=== PATIENT | female | born 1945 | race Caucasian/White ===

== ENCOUNTER 2024-11-24 08:47 | Inpatient (IN) | payer MEDICARE, BC, SELFPAY ==
[2024-11-24 08:52] VITALS: PULSE 99; RESP 20; O2SAT 94
--- NOTE | 2024-11-24 08:59 | EDNOTE_ITS ---
ED General RME/HPI General Chief complaint: Altered Mental Status Stated complaint: ALTERED Time Seen by Provider: 11/24/24 08:56 Arrival date/time: 11/24/24 08:47 RME / HPI RME / HPI narrative: L Chief complaint: Altered mentation, ground level fall HPI: Patient is a 79 year old female with unknown past medical history who was BIBA after her found her passed out on the floor around 7 am. Patient is a poor historian, minimally responsive, so most of the history was obtained from EMS. She was found on the floor in her house, unresponsive and covered in feces. As per EMS records, informed that the patient has a history of advanced dementia and often wanders around with history of ground level falls, but she has never lost bowel continence or appeared drowsy. she is otherwise able to ambulate independently and is responsive to conversation. In the ED, patient was noted to have bilateral upper extremity bruises and skin sloughing. She also has a LT upper back bruise, and grimaces to flexion and extension of LT lower extremity. patient refuses to open her eyes and is minimally engaging. Related Data Home Medications ?Medication ?Instructions ?Recorded ?Confirmed simvastatin 10 mg tablet (Zocor) 10 mg PO HS #0 tabs 0 05/28/14 11/24/24 metoprolol succinate 25 mg 25 mg PO BID 06/29/1811/24 tablet,extended release 24 hr nitrofurantoin macrocrystal 100 mg 100 mg PO DAILY 12/1511/24/24 capsule Allergies Allergy/AdvReac Type Severity Reaction Status Date / Time cimetidine Allergy Mild INCREASED Unverified 05/28/14 11:55 HEART RATE etodolac Allergy Mild Unverified 05/28/14 09:04 [id number] Allergy Mild Verified 05/28/14 09:04 [id number] Allergy Mild Verified 05/28/14 09:04 [id number] Allergy Mild Verified 05/28/14 09:04 [id number] Allergy Mild Verified 05/28/14 09:04 [id number] Allergy Mild Verified 05/28/14 09:04 [id number] Allergy Mild Verified 05/28/14 09:04 [id number] Allergy Mild Verified 05/28/14 09:04 [id number] Allergy Mild Verified 05/28/14 09:04 [id number] Allergy Mild Verified 05/28/14 09:04 [id number] Allergy Mild Verified 05/28/14 09:04 lanolin Allergy Mild Verified 05/28/14 09:04 nitrofurantoin Allergy Mild YEAST Unverified 05/28/14 09:04 INFECTION orphenadrine Allergy Mild Rash Verified 05/28/14 09:04 povidone Allergy Mild Verified 05/28/14 09:04 quinine Allergy Mild BLEEDING Unverified 05/28/14 09:04 Sulfa (Sulfonamide Allergy Mild Unverified 05/28/14 09:04 Antibiotics) sulfamethoxazole Allergy Mild Unverified 05/28/14 09:04 trimethoprim Allergy Mild Unverified 05/28/14 09:04 Review of Systems Review of Systems ROS Unobtainable: unobtainable due to mental status ED Exam Narrative Physical exam: Constitutional Elderly, unresponsive. Grimaces to pain. HEENT Vision grossly intact. Patent nares. Trachea midline. On 2L via NC Respiratory Chest normal on inspection and clear to auscultation bilaterally. Cardiovascular S1 and S2 audible, RRR. No murmurs or carotid bruit. No gross JVD. Abdominal Soft to palpation in all quadrants. BS + Genitourinary Normal to palpation, adult diaper Musculoskeletal B/L UE elbow abrasions. No LE edema. RT knee replacement surgical scar. LT foot toe deformities. Neurological CN II - XII grossly intact. Extremity motor and sensation grossly intact. Skin LT scapula upper back bruise. Multiple senile purpura Course Course Course Narrative: Acute encephalopathy due to advanced dementia Sepsis alert called, WBC 11.4, likely source LT base pneumonia on CT Chest and possibly UTI as well. UA pending. 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 Care 11/24/24 09:27 Active Continuous Pulse Oximetry STAT Care 11/24/24 09:27 Completed Decision to Admit X1 Care 11/24/24 12:36 Completed EKG (ED ONLY) *Do not use* NOW Care 11/24/24 09:12 Completed Ortega [Urinary Catheter] QS Care 11/24/24 09:11 Active IV [Insert IV] NOW Care 11/24/24 09:11 Active NPO STAT Care 11/24/24 09:27 Active Strict Intake and Output Routine Care 11/24/24 09:27 Ordered Wound Care NOW Care 11/24/24 09:52 Active Consult to Orthopedic Stat Cons 11/24/24 12:55 Ordered PT [Referral Physical Therapy] Routine Cons 11/24/24 17:26 Active Referral Discharge Planning Routine Cons 11/24/24 17:26 Active Diet Regular Diet 11/24/[address] cervical spine wo con Stat Exams 11/24/24 09:[address] chest abdomen pelvis wo Stat Exams 11/24/24 09:[address] head/brain wo con Stat Exams 11/24/24 09:[address] lumbar spine wo con Stat Exams 11/24/24 09:[address] thoracic spine wo con Stat Exams 11/24/24 09:14 Completed EKG (ED Only) Stat Exams 11/24/24 09:12 Ordered XR ankle LT 2V Stat Exams 11/24/24 09:52 Completed XR femur LT 2V Stat Exams 11/24/24 09:52 Completed XR forearm LT 2V Stat Exams 11/24/24 09:52 Completed XR forearm RT 2V Stat Exams 11/24/24 09:52 Completed XR tibia fibula LT 2V Stat Exams 11/24/24 09:52 Completed ABG [Arterial Blood Gas] Stat Lab 11/24/24 11:19 Completed Ammonia Stat Lab 11/24/24 09:23 Completed B-Type Natriuretic Peptide Stat Lab 11/24/24 09:23 Completed Blood Culture (Lab) Stat Lab 11/24/24 09:23 Received CBC AM DRAW Lab 11/25/24 05:00 Ordered CBC AM DRAW Lab 11/26/24 05:00 Ordered CBC AM DRAW Lab 11/27/24 05:00 Ordered CBC Stat Lab 11/24/24 09:23 Completed CMP [Comprehensive Metabolic Panel] Stat Lab 11/24/24 09:23 Completed Comprehensive Metabolic Panel AM DRAW Lab 11/25/24 05:00 Ordered Comprehensive Metabolic Panel AM DRAW Lab 11/26/24 05:00 Ordered Comprehensive Metabolic Panel AM DRAW Lab 11/27/24 05:00 Ordered Creatine Kinase Stat Lab 11/24/24 09:23 Completed INR [Prothrombin Time with INR] Stat Lab 11/24/24 09:23 Completed LDH (Lactate Dehydrogenase) Stat Lab 11/24/24 09:23 Completed Lactate (Lactic Acid) Stat Lab 11/24/24 09:23 Completed Lactic Acid, 3 HR Stat Lab 11/24/24 13:08 Completed Lipase Stat Lab 11/24/24 09:23 Completed Magnesium Stat Lab 11/24/24 09:23 Completed PTT [Partial Thromboplastin Time] Stat Lab 11/24/24 09:23 Completed Phosphorous Stat Lab 11/24/24 09:23 Completed Procalcitonin Stat Lab 11/24/24 09:23 Completed Troponin I Stat Lab 11/24/24 09:23 Completed Urinalysis Stat Lab 11/24/24 10:50 Completed Urine Culture Stat Lab 11/24/24 10:50 Received Bacitracin Oint Tube Med 11/24/24 09:52 Discontinued 2 gm TOP X1 ONE Heparin Inj Med 11/24/24 21:00 Active 5,000 unit SC BID Ringers Lactated 1000 ml [Lactated Ringers] 1,000 ml Med 11/24/24 12:43 Discontinued IV 1,000 mls/hr Sodium Chloride 0.45 % [Ns 0.45%] 1,000 ml Med 11/24/24 17:23 Active IV 100 mls/hr Sodium Chloride 0.9% 1000 ml [Ns] 1,000 ml Med 11/24/24 09:42 Discontinued IV 999 mls/hr Tet,Diphth,Pertuss(Acell)-Tdap [Boostrix Vacc] Med 11/24/24 12:43 Discontinued 0.5 ml IMI .ONCE ONE cefTRIAXone/D5w 1gm IV premix [Rocephin/D5w 1gm IV Med 11/25/24 09:00 Active premix] 50 ml IV QDAY cefTRIAXone/D5w 1gm IV premix [Rocephin/D5w 1gm IV Med 11/24/24 11:21 Discontinued premix] 50 ml IV X1 Code Status Routine Oth 11/24/24 17:23 Ordered Oxygen Delivery NOW RT 11/24/24 09:27 Active Vital Signs Vital signs: Vital Signs Temperature 98.6 F 11/24/24 09:27 Pulse Rate 98 11/24/24 09:27 Respiratory Rate 18 11/24/24 09:27 Blood Pressure 134/65 H 11/24/24 09:27 Pulse Oximetry (%) 90 L 11/24/24 09:27 Oxygen Delivery Method Nasal Cannula 11/24/24 09:27 Oxygen Flow Rate 2 11/24/24 09:27 [facility] Patient data External records reviewed:: None Clinical information provided by:: EMS and spouse Social determinants that could affect healthcare access:: other (specify) (Dementia) Patient has the following chronic illnesses:: unknown How is presenting disease/condition affected by chronic disease/condition?: e xacerbated by Evaluation data The following diagnostics were reviewed and interpreted by me:: lab results, radiology exam(s) and EKG tracing(s) (My interpretation of the EKG is: Sinus rhythm (82 bpm) with nonspecific ST-T changes. Zacarias Ramon MD) Lab and/or radiology exams considered but not ordered:: None Interpretation Summary: Sepsis, AMS (altered mental status), Dementia, Fall, Rhabdomyolysis, UTI (urinary tract infection), Multiple abrasions, DNR (do not resuscitate), Pelvic fracture, Right rib fracture Medications Medications considered but not ordered:: None Medication administrations:: Medication Administration History Heparin Sodium (Porcine) (Heparin Sod Inj 5000 Unit/Ml Vial) 5,000 unit SC BID [place] Stop: 12/08/24 20:59 Sodium Chloride (Ns 0.45%) 1,000 mls @ 100 mls/hr IV .Q10H ONE Stop: 11/25/24 03:22 Ceftriaxone Sodium/Dextrose (Rocephin/D5w 1gm Iv Premix) 50 mls @ 100 mls/hr IV QDAY [place] Stop: 12/02/24 08:59 Discontinued Medications Bacitracin (Bacitracin Oint 15 Gm Tube) 2 gm TOP X1 ONE Stop: 11/24/24 09:53 Last Admin: 11/24/24 10:31 Dose: 2 gram Documented By: KADY Diphtheria/Tetanus/Acell Pertussis (Diphth,Pertuss(Acell),Tet Vac 0.5 Ml Vial) 0.5 ml IMi .ONCE ONE Stop: 11/24/24 12:44 Last Admin: 11/24/24 13:25 Dose: Not Given Documented By: KAYD Non-Admin Reason: Allergic to Vaccine Component Comments: not given Sodium Chloride (Ns) 1,000 mls @ 999 mls/hr IV .Q1H1M ONE Stop: 11/24/24 10:42 Last Infusion: 11/24/24 11:46 Dose: Infused Documented By: Admin: 11/24/24 10:33 Dose: 999 mls/hr Documented By: KADY Ceftriaxone Sodium/Dextrose (Rocephin/D5w 1gm Iv Premix) 50 mls @ 100 mls/hr IV X1 ONE Stop: 11/24/24 11:50 Last Infusion: 11/24/24 13:00 Dose: Infused Documented By: Admin: 11/24/24 12:13 Dose: 100 mls/hr Documented By: KADY Lactated Ringer's (Lactated Ringers) 1,000 mls @ 1,000 mls/hr IV .Q1H ONE Stop: 11/24/24 13:42 Last Infusion: 11/24/24 15:12 Dose: Infused Documented By: Admin: 11/24/24 13:22 Dose: 1,000 mls/hr Documented By: KADY IV fluid and Rocephin Consultations Consultation(s) initiated? (list below): Yes Consultation #1 (Physician, Specialty, Details): Our orthopedic surgeon Diagnosis Differential Diagnosis ED Complaint MDM: CVA, SD, sepsis, internal organ injuries, fractures, pneumonia, UTI Most likely diagnosis given after review of the tests above:: Sepsis, AMS (altered mental status), Dementia, Fall, Rhabdomyolysis, UTI (urinary tract infection), Multiple abrasions, DNR (do not resuscitate), Pelvic fracture, Right rib fracture Admission Indicated Admission indicated?: indicated Explain why admission is indicated or not indicated:: Sepsis, AMS (altered mental status), Dementia, Fall, Rhabdomyolysis, UTI (urinary tract infection), Multiple abrasions, DNR (do not resuscitate), Pelvic fracture, Right rib fracture Admission Request Was there a request for admission?: Yes Admission Attestation Admission request attestation: Discussed case with Dr. Paez regarding admission. Discussed patients ED course, exam findings, labs, and radiology results. The Hospitalist [agrees,declines] to accept the patient for admission. Disposition Plan Disposition Plan: Admit Medical Decision Making MDM Narrative MDM Narrative: Patient is a 79 year old elderly female who was BIBA for altered mentation and GLF. She was found to have sepsis 2/2 LT base PNA, possibly UTI and acute encephalopathy, GLMF with acute fractures. Plan: - Decision to admit to inpatient service. - Given rocephin 1g x1 - Ortho consult in place - F/U UA and CMP Pending possible transfer Differential Diagnosis Differential Diagnosis: CVA, SD, sepsis, internal organ injuries, fractures, pneumonia, UTI Lab Data 11/24/24 09:23 11/24/24 09:23 Labs: Lab Results 11/24/24 11/24/24 11/24/24 Range/Units 09:23 10:50 11:19 WBC 11.4 H (3.6-11.0) Thou/mm3 RBC 5.22 H (4.00-5.20) Miln/mm3 Hgb 15.7 (12.0-16.0) g/dL Hct 46.3 H (36.0-46.0) % MCV 89 (80-100) fL MCH 30.1 (25.0-35.0) pg MCHC 33.9 (31.0-37.0) g/dl RDW Std Deviation 44.5 (36.4-46.3) fL Plt Count 156 (140-440) Thou/mm3 Neut % (Auto) 84 H (37-80) % Lymph % (Auto) 7 L (10-50) % [place] % (Auto) 9 (0-12) % Eos % (Auto) 0 (0-10) % Baso % (Auto) 0 (0-2.5) % Neut # (Auto) 9.6 H (1.8-7.7) Thou/mm3 Lymph # (Auto) 0.8 L (1.0-4.8) Thou/mm3 [place] # (Auto) 1.0 H (0.0-0.8) Thou/mm3 Eos # (Auto) 0.0 (0.0-0.5) Thou/mm3 Baso # (Auto) 0.0 (0.0-0.2) Thou/mm3 Immature Gran # (Auto) 0.03 H (0.00-0.00) Thou/mm3 Absolute Nucleated RBC 0.00 (0.00-0.00) Thou/mm3 Immature Gran % 0 (0-0) % Nucleated RBC % 0 (0) /100 WBC PT 12.1 (9.0-12.2) Seconds INR 1.1 (0.9-1.3) APTT 27.7 (22.0-36.0) Seconds Puncture Site Right Radial ABG pH 7.44 (7.35-7.45) ABG pCO2 35 (32.0-48.0) mmHg ABG pO2 123 H (83-108) mmHg ABG HCO3 24 (20-26) mEq/L ABG O2 Saturation 99 H (91-98) % ABG Base Excess 0 (-3-3) FiO2 95 % Sodium 143 (136-145) mMol/L Potassium 3.7 (3.4-5.1) mMol/L Chloride 109 H (98-107) mMol/L Carbon Dioxide 26.1 (20.0-31.0) mMol/L Anion Gap 8 (7-16) BUN 26 H (9-23) mg/dL Creatinine 0.8 (0.6-1.3) mg/dL Estim Creat Clear Calc 52.3 L (>60) mL/min eGFR > 60 (60 - ) See Note BUN/Creatinine Ratio 33 H (12-20) Ratio Glucose 155 H (74-106) mg/dL Calculated Osmolality 292 (275-295) Lactic Acid 2.3 H (0.4-2.0) mMol/L Calcium 10.5 (8.3-10.6) mg/dL Corrected Calcium 10.5 H (8.5-10.1) mg/dL Phosphorus 2.4 (2.4-5.1) mg/dL Magnesium 2.4 (1.6-2.6) mg/dL Total Bilirubin 2.6 H (0.3-1.2) mg/dL AST 120 H (0-34) U/L ALT 49 (10-49) U/L Alkaline Phosphatase 75 (46-116) U/L Ammonia < 10 L (11-32) uMol/L Lactate Dehydrogenase 367 H (120-246) U/L Total Creatine Kinase 2218 H (34-171) U/L Troponin I 0.033 (0.0-0.045) ng/mL B-Natriuretic Peptide 74 (0-100) pg/mL Total Protein 7.0 (5.7-8.2) gm/dL Albumin 4.6 (3.4-4.8) gm/dL Globulin 2.4 (2.3-3.5) gm/dL Albumin/Globulin Ratio 1.9 (1.2-2.2) Lipase 25 (12-53) U/L Procalcitonin 0.57 H (0.0-0.49) ng/ml Ur Collection Type Catheter Urine Color Yellow (Lt Yel-Yel) Urine Clarity Clear (Clear/Hazy) Urine pH 5.5 (5.0-7.0) Ur Specific [place] 1.021 (1.001-1.035) Urine Protein 1+ A (Neg - Trace) Urine Glucose (UA) Negative (Negative) Urine Ketones 1+ A (Negative) Urine Blood Negative (Negative) Urine Nitrite Positive (Negative) Urine Bilirubin Negative (Negative) Urine Urobilinogen (Auto) Negative (0.0-1.0) mg/dL Ur Leukocyte Esterase Positive (Negative) Urine RBC 7 H (0-3) /hpf Urine WBC 60 H (0-5) /hpf Ur Squamous Epith Cells 0 (0-5) /hpf Urine Bacteria None (None) 11/24/24 Range/Units 13:08 WBC (3.6-11.0) Thou/mm3 RBC (4.00-5.20) Miln/mm3 Hgb (12.0-16.0) g/dL Hct (36.0-46.0) % MCV (80-100) fL MCH (25.0-35.0) pg MCHC (31.0-37.0) g/dl RDW Std Deviation (36.4-46.3) fL Plt Count (140-440) Thou/mm3 Neut % (Auto) (37-80) % Lymph % (Auto) (10-50) % Williamson % (Auto) (0-12) % Eos % (Auto) (0-10) % Baso % (Auto) (0-2.5) % Neut # (Auto) (1.8-7.7) Thou/mm3 Lymph # (Auto) (1.0-4.8) Thou/mm3 Williamson # (Auto) (0.0-0.8) Thou/mm3 Eos # (Auto) (0.0-0.5) Thou/mm3 Baso # (Auto) (0.0-0.2) Thou/mm3 Immature Gran # (Auto) (0.00-0.00) Thou/mm3 Absolute Nucleated RBC (0.00-0.00) Thou/mm3 Immature Gran % (0-0) % Nucleated RBC % (0) /100 WBC PT (9.0-12.2) Seconds INR (0.9-1.3) APTT (22.0-36.0) Seconds Puncture Site ABG pH (7.35-7.45) ABG pCO2 (32.0-48.0) mmHg ABG pO2 (83-108) mmHg ABG HCO3 (20-26) mEq/L ABG O2 Saturation (91-98) % ABG Base Excess (-3-3) FiO2 % Sodium (136-145) mMol/L Potassium (3.4-5.1) mMol/L Chloride (98-107) mMol/L Carbon Dioxide (20.0-31.0) mMol/L Anion Gap (7-16) BUN (9-23) mg/dL Creatinine (0.6-1.3) mg/dL Estim Creat Clear Calc (>60) mL/min eGFR (60 - ) See Note BUN/Creatinine Ratio (12-20) Ratio Glucose (74-106) mg/dL Calculated Osmolality (275-295) Lactic Acid 1.9 (0.4-2.0) mMol/L Calcium (8.3-10.6) mg/dL Corrected Calcium (8.5-10.1) mg/dL Phosphorus (2.4-5.1) mg/dL Magnesium (1.6-2.6) mg/dL Total Bilirubin (0.3-1.2) mg/dL AST (0-34) U/L ALT (10-49) U/L Alkaline Phosphatase (46-116) U/L Ammonia (11-32) uMol/L Lactate Dehydrogenase (120-246) U/L Total Creatine Kinase (34-171) U/L Troponin I (0.0-0.045) ng/mL B-Natriuretic Peptide (0-100) pg/mL Total Protein (5.7-8.2) gm/dL Albumin (3.4-4.8) gm/dL Globulin (2.3-3.5) gm/dL Albumin/Globulin Ratio (1.2-2.2) Lipase (12-53) U/L Procalcitonin (0.0-0.49) ng/ml Ur Collection Type Urine Color (Lt Yel-Yel) Urine Clarity (Clear/Hazy) Urine pH (5.0-7.0) Ur Specific [place] (1.001-1.035) Urine Protein (Neg - Trace) Urine Glucose (UA) (Negative) Urine Ketones (Negative) Urine Blood (Negative) Urine Nitrite (Negative) Urine Bilirubin (Negative) Urine Urobilinogen (Auto) (0.0-1.0) mg/dL Ur Leukocyte Esterase (Negative) Urine RBC (0-3) /hpf Urine WBC (0-5) /hpf Ur Squamous Epith Cells (0-5) /hpf Urine Bacteria (None) Critical Care Time Critical Care Time Critical Care Time: Yes Total Critical Care Time (min.): 48 Attestation: Due to a high probability of clinically significant, life threatening deterioration, the patient required my highest level of preparedness to intervene emergently and I personally spent this critical care time directly and personally managing the patient. This critical care time included obtaining a history; examining the patient; ordering and review of studies; arranging urgent treatment with development of a management plan; evaluation of patient's response to treatment; frequent reassessment; and discussions with family and other providers. It was exclusive of separately billable procedures and treating other patients and teaching time. Zacarias Ramon MD Discharge Plan Plan Patient Disposition: Admit Acute Care w/in Hospital Prescriptions/Referrals Prescriptions/Med Rec: No Action simvastatin [Zocor] 10 MG tablet 10 mg PO HS Qty: 0 nitrofurantoin macrocrystal 100 mg Capsule 100 mg PO DAILY metoprolol succinate 25 mg Tablet Extended Release 24 Hr 25 mg PO BID Problem List Clinical Impression: Sepsis, AMS (altered mental status), Dementia, Fall, Rhabdomyolysis, UTI (urinary tract infection), Multiple abrasions, DNR (do not resuscitate), Pelvic fracture, Right rib fracture Patient/Caregiver Discharge Instructions Print Language: Danish Stand Alone Forms: [facility] Award Info., Patient Portal Info Letter Attestation Attestation I reviewed all diagnostic test results. Diagnoses include: Sepsis, AMS (altered mental status), Dementia, Fall, Rhabdomyolysis, UTI (urinary tract infection), Multiple abrasions, DNR (do not resuscitate), Pelvic fracture, Right rib fracture I discussed the case with Dr. Paez and our orthopedic surgeon. About the presentation and exam and diagnostics and treatments here. And need of further care in the hospital. Will accept the patient. Zacarias Ramon MD
--- NOTE | 2024-11-24 09:11 | XR_ITS ---
Examination: CT brain head without contrast. 2-D sagittal coronal reconstructions Date and time of exam:November 16, 2024 at 0916 hours INDICATIONS: Ground-level fall today with injury to the head, head pain CTDI: vol (mGy):48.8 DLP: (mGycm):1046 Technique: Multiple CT axial sections of the brain have been obtained, 5 mm slice thickness. Contrast has not been administered. 2-D sagittal, coronal reconstructions have been obtained Low dose protocols were performed. One or more of the following dose reduction techniques were used; automated exposure control, adjustment of the mA and/or KV according to patient size, use of iterative reconstruction technique. Findings: No significant ventricular enlargement. Intra-axial or extra-axial hemorrhage density is not seen. No mass effect or midline shift Basal cisterns are not remarkable. Fourth ventricle is midline. Cranial vault intact. Numerous artifacts over the posterior fossa Impression: Limited study No acute hemorrhage mass effect or midline shift noted
--- NOTE | 2024-11-24 09:11 | XR_ITS ---
Examination: CT chest, without intravenous contrast. CT abdomen, without intravenous contrast. CT pelvis, without intravenous contrast. 2-D sagittal and coronal reconstructions. 3-D reconstructions. Date and time of exam:November 24, 2024 0934 hours INDICATIONS: Ground-level fall today with injury to the chest and abdomen, chest pain abdomen pain back pain CTDI vol (mgy) 16.4 DLP (MGycm)970 Technique: Multiple CT images, 3.0 mm slice thickness, obtained chest, abdomen, pelvis, with the high-resolution 64 slice scanner.. Sagittal and coronal 2-D reconstructions are obtained. 3-D reconstructions Low dose protocols were performed. One or more of the following dose reduction techniques were used; automated exposure control, adjustment of the mA and/or KV according to patient size, use of iterative reconstruction technique. Findings: 12 mm left thyroid nodule Thoracic aorta pulmonary arteries appear intact on this noncontrast study Mild to moderate enlargement cardiac contour No pericardial effusion 10 mm spiculated density right apex axial image 43 No pneumothorax or hemothorax Atelectasis versus mild pneumonia or pulmonary contusion left base The manubrium the body the sternum intact No acute thoracic or lumbar vertebral body compression fracture Acute appearing nondisplaced fracture right sixth rib anteriorly axial image 148 No liver or splenic or renal laceration, no perinephric hematoma No gallstones No pancreatic or adrenal mass Negative for pneumoperitoneum Abdominal aorta intact with no free blood in the abdomen Atrophic uterus Urinary bladder intact Abundant stool in the rectum Sacral segments intact Acute fracture left inferior pubic ramus Acute comminuted fractures left iliac bone above the acetabulum, axial images 297 through 307 Fracture lines extend to the lateral roof of the left acetabulum axial image 312 Fracture left superior pubic ramus axial image 332 Hemorrhagic enlargement of the left obturator externus Right hip intact Satisfactory alignment left hip arthroplasty IMPRESSION: 12 mm left thyroid nodule Thoracic aorta pulmonary arteries intact No hemopericardium No pneumothorax or hemothorax Probable mild atelectasis left base Acute appearing nondisplaced fracture right sixth rib anteriorly No abdominal parenchymal laceration Abdominal aorta intact No free blood in the abdomen or pelvis Acute comminuted fractures left inferior pubic ramus Acute comminuted fractures left iliac bone above the acetabulum, extending to the lateral roof of the left acetabulum, axial images 297 through 312 Acute fracture left superior pubic ramus
--- NOTE | 2024-11-24 09:14 | XR_ITS ---
Examination: CT thoracic spine, without contrast. 2-D sagittal reconstructions. 2-D coronal reconstructions. 3-D reconstructions. Date and time of exam:November 16, 2024 at 0934 hours INDICATIONS: Ground-level fall today with injury to the back, mid back pain CTDI: vol (mGy):22 DLP: (mGycm):715 Technique: Multiple 1.25 mm axial sections of the thoracic spine without intravenous contrast have been obtained. 2-D sagittal and coronal reconstructions have been obtained. 3-D reconstructions have been obtained. Low dose protocols were performed. One or more of the following dose reduction techniques were used; automated exposure control, adjustment of the mA and/or KV according to patient size, use of iterative reconstruction technique. Findings: Satisfactory alignment thoracic vertebral bodies No thoracic fracture Mild thoracic spondylosis Thoracic pedicles and laminae appear intact No focal thoracic disc protrusions IMPRESSION: No acute thoracic fracture
--- NOTE | 2024-11-24 09:14 | XR_ITS ---
Examination: CT lumbar spine, without contrast. 2-D sagittal reconstructions. 2-D coronal reconstructions. 3-D reconstructions. Date and time of exam:November 24, 2024 0934 hours INDICATIONS: Ground-level fall today with injury to lower back, lower back pain CTDI: vol (mGy):44.7 DLP: (mGycm):692 Technique: Multiple 1.25 mm axial sections of the lumbar spine without intravenous contrast have been obtained. 2-D sagittal and coronal reconstructions have been obtained. 3-D reconstructions have been obtained. Low dose protocols were performed. One or more of the following dose reduction techniques were used; automated exposure control, adjustment of the mA and/or KV according to patient size, use of iterative reconstruction technique. Findings: Prominent osteopenia No lumbar vertebral body compression fracture No spondylolisthesis Lumbar pedicles, laminae, transverse and posterior spinous processes intact L4-L5 3 mm central lumbar disc bulge Advanced degenerative disc disease T11-T12, T12-L1, L1-L2 IMPRESSION: No acute lumbar fracture
--- NOTE | 2024-11-24 09:14 | XR_ITS ---
Examination: CT cervical spine without contrast 2-D sagittal reconstructions 2-D coronal reconstructions 3-D reconstructions. Exam date and time:November 16, 2024 0916 hours INDICATIONS: Ground-level fall with injury to the neck today, neck pain CTDI:vol (mGy) 7.82 DLP: (mGycm) 161 Technique: Multiple 2 mm axial sections of the cervical spine have been obtained. The coronal and sagittal reconstructions have been obtained. 3-D reconstructions have been obtained. Low dose protocols were performed. One or more of the following dose reduction techniques were used; automated exposure control, adjustment of the mA and/or KV according to patient size, use of iterative reconstruction technique. Findings: Axial sections demonstrate intact base of the skull. Significant disc narrowing C5 moderate disc narrowing C5-C6 C1 exhibit satisfactory relationship to the odontoid. No acute cervical vertebral body fracture seen. Alignment posterior spinous processes satisfactory. Impression: No acute cervical fracture. Subtle spiculated nodular density in the right upper lobe, axial image 112, measuring 12 mm, follow-up chest imaging recommended
[2024-11-24 09:27] VITALS: BP 134/65; PULSE 85; PULSE 88; PULSE 98; RESP 18; RESP 88; TEMP 37; O2SAT 90; O2SAT 92
[2024-11-24 09:33] VITALS: BMI 25.7
[2024-11-24 09:36] LABS: Lactate (Lactic Acid) 2.3 mMol/L (0.4-2.0)
[2024-11-24 09:38] LABS: Basophils % (Auto) 0 % (0-2.5); Eosinophils % (Auto) 0 % (0-10); Hematocrit 46.3 % (36.0-46.0); Hemoglobin 15.7 g/dL (12.0-16.0); Immature Granulocytes % (Auto) 0 % (0-0); Immature Granulocytes Auto 0.03 Thou/mm3 (0.00-0.00); Lymphocytes # (Auto) 0.8 Thou/mm3 (1.0-4.8); Lymphocytes % (Auto) 7 % (10-50); Mean Corpuscular HGB Conc 33.9 g/dl (31.0-37.0); Mean Corpuscular Hemoglobin 30.1 pg (25.0-35.0); Mean Corpuscular Volume 89 fL (80-100); Monocytes % (Auto) 9 % (0-12); Neutrophils # (Auto) 9.6 Thou/mm3 (1.8-7.7); Neutrophils % (Auto) 84 % (37-80); Nucleated Red Blood Cell % 0 /100 WBC (0); Platelet Count 156 Thou/mm3 (140-440); RDW Standard Deviation 44.5 fL (36.4-46.3); Red Blood Count 5.22 Miln/mm3 (4.00-5.20); White Blood Count 11.4 Thou/mm3 (3.6-11.0)
--- NOTE | 2024-11-24 09:52 | XR_ITS ---
Examination: Tibia-Fibula, left , 2 views Technique: Tibia-fibula AP lateral 2 views Date and time of exam: November 24, 2024 1003 hours INDICATIONS: Patient fell today with injury to left lower leg, lower leg pain. FINDINGS: Prominent osteopenia No acute fracture No foreign body IMPRESSION: No acute fracture
--- NOTE | 2024-11-24 09:52 | XR_ITS ---
Examination: Left ankle 2 views TECHNIQUE: AP lateral left ankle 2 views Exam date and time: November 24, 2024 1011 hours INDICATIONS: Patient fell today with injury of the left ankle, left ankle pain FINDINGS: Prominent osteopenia No acute ankle fracture No ankle dislocation IMPRESSION: No acute ankle fracture
--- NOTE | 2024-11-24 09:52 | XR_ITS ---
Examination: Forearm, left, 2 views. Technique: Forearm, AP, lateral 2 views Date and time of exam: November 24, 2024 10:29 AM INDICATIONS: Patient fell today with injury to the forearm, left forearm pain. FINDINGS: Incomplete study. No true lateral view the forearm No fracture depicted IMPRESSION: Incomplete study Recommend follow-up true lateral view of the forearm
--- NOTE | 2024-11-24 09:52 | XR_ITS ---
Examination: Left femur 2 views Technique one AP lateral left femur 2 views Exam date and time: November 24, 2024 10:19 PM INDICATIONS: Patient fell today with injury to the femur, femur pain. FINDINGS: Total left hip arthroplasty. Satisfactory alignment Shaft of the femur appears intact Please see the CT pelvis report today for description of pelvic fractures including fracture left inferior pubic ramus IMPRESSION: Femoral shaft appears intact
--- NOTE | 2024-11-24 09:52 | XR_ITS ---
Examination: Forearm, right, 2 views. Technique: Forearm, AP, lateral 2 views Date and time of exam: November 16, 2024 1023 hours INDICATIONS: Patient fell today with injury to the right forearm, right forearm pain. FINDINGS: Prominent osteopenia Very limited study, no lateral view of the forearm IMPRESSION: Complete study Recommend follow-up true lateral view of the forearm
[2024-11-24 09:55] LABS: INR 1.1 (0.9-1.3); Partial Thromboplastin Time 27.7 Seconds (22.0-36.0); Prothrombin Time 12.1 Seconds (9.0-12.2)
[2024-11-24 10:17] LABS: Ammonia < 10 uMol/L (11-32)
[2024-11-24] MEDS: BACITRACIN OINT 15 GM TUBE 2 GM TOP (10:31)
[2024-11-24] MEDS: SODIUM CHLORIDE 0.9% 1000 ML 1,000 ML 999 ML IV (10:33)
[2024-11-24 10:43] LABS: B-Type Natriuretic Peptide 74 pg/mL (0-100)
[2024-11-24 11:07] LABS: Collection Type, Urine Catheter; Squamous Epithelial Cell,Urine 0 /hpf (0-5)
[2024-11-24 11:24] LABS: Base Excess 0 (-3-3); HCO3 24 mEq/L (20-26); Inspired Oxygen, FIO2 95 %; O2 Saturation 99 % (91-98); PCO2 35 mmHg (32.0-48.0); PO2 123 mmHg (83-108); pH, Arterial 7.44 (7.35-7.45)
[2024-11-24 11:35] VITALS: BP 124/59; PULSE 75; RESP 18; TEMP 36.5; O2SAT 97
[2024-11-24 11:44] LABS: Allen Test Performed/OK; Puncture Site Right Radial
[2024-11-24 11:45] LABS: Alanine Aminotransferase 49 U/L (10-49); Albumin, Serum 4.6 gm/dL (3.4-4.8); Albumin/Globulin Ratio 1.9 (1.2-2.2); Alkaline Phosphatase 75 U/L (46-116); Anion Gap 8 (7-16); Aspartate Amino Transferase 120 U/L (0-34); BUN/Creatinine Ratio 33 Ratio (12-20); Bilirubin,Total 2.6 mg/dL (0.3-1.2); Blood Urea Nitrogen 26 mg/dL (9-23); Calcium 10.5 mg/dL (8.3-10.6); Calcium (Corrected) 10.5 mg/dL (8.5-10.1); Carbon Dioxide 26.1 mMol/L (20.0-31.0); Chloride 109 mMol/L (98-107); Creatinine (Component) 0.8 mg/dL (0.6-1.3); Estimated Creatinine Clearance 52.3 mL/min (>60); Globulin 2.4 gm/dL (2.3-3.5); Glucose 155 mg/dL (74-106); LDH (Lactate Dehydrogenase) 367 U/L (120-246); Lipase 25 U/L (12-53); Magnesium 2.4 mg/dL (1.6-2.6); Osmolality,Calculated 292 (275-295); Phosphorous 2.4 mg/dL (2.4-5.1); Potassium 3.7 mMol/L (3.4-5.1); Procalcitonin 0.57 ng/ml (0.0-0.49); Sodium 143 mMol/L (136-145); Troponin I 0.033 ng/mL (0.0-0.045); eGFR > 60 See Note
[2024-11-24 11:45] LABS: Bilirubin,Urine Negative (Negative); Blood,Urine Negative (Negative); Clarity,Urine Clear (Clear/Hazy); Color,Urine Yellow (Lt Yel-Yel); Glucose, Urine Negative (Negative); Ketones,Urine 1+ (Negative); Leukocyte Esterase,Urine Positive (Negative); Nitrite,Urine Positive (Negative); PH,Urine 5.5 (5.0-7.0); Protein,Urine 1+ (Neg - Trace); RBC,Urine 7 /hpf (0-3); Specific Gravity,Urine 1.021 (1.001-1.035); Urobilinogen,Urine Negative mg/dL (0.0-1.0); WBC,Urine 60 /hpf (0-5)
[2024-11-24] MEDS: cefTRIAXone/D5w 1gm IV premix 50 ML IV (12:13)
[2024-11-24 12:18] LABS: Creatine Kinase 2218 U/L (34-171)
[2024-11-24 12:35] LABS: Reflex Lactate? Y
--- NOTE | 2024-11-24 13:04 | PC.CM ---
[id number] I received a referral to transfer patient for orthopedic services. called me shortly afterwords and canceled transfer request.
[2024-11-24 13:21] LABS: Lactic Acid, 3 HR 1.9 mMol/L (0.4-2.0)
[2024-11-24] MEDS: RINGERS LACTATED 1000 ML 1,000 ML IV (13:22)
[2024-11-24 16:26] VITALS: BP 107/75; PULSE 106; RESP 24; TEMP 36.8; O2SAT 96
--- NOTE | 2024-11-24 17:27 | PD.NEPHHP ---
Documentation for date of: 11/24/24 History of Present Illness History of Present Illness Chief complaint: s/p fall History of present illness: Informant chart review, Ms. Blancas is an 79-year-old female with a past medical history of advanced dementia, hypertension, and hyperlipidemia who was brought to the ED after being found on the ground by her for unknown duration of time. Patient is unable to provide history, thus history was obtained via chart review. found patient at home on floor, unconscious, and covered in feces in morning of 11/24. She does have a history of multiple ground-level falls, but has never lost consciusness or had bowel/bladder incontinence. In the ED, vitals significant for O2 90% on 2 L NC, otherwise stable. Labs significant for WBC 11.4, hgb 15.7, and plt wnl. BUN 26, Cr 0.8, lactate 2.3, t bili 2.6, AST 120, and CK 2200. CT C/A/P showed fracture of 6h right rib, left inferior pubic ramus, left superior pubic ramus, and left iliac bone. CT spine negative, CT head negative, XR of femur, ankle, forearm, and tibia/fibula negative. Given ceftriaxone, 1 L NS, and 1 L LR in ED. Patient admitted to medical floor. She will need to go to rehab. Home medications included metoprolol, nitrofurantoin, Zocor Review of Systems Review of Systems ROS Unobtainable: unobtainable due to medical condition Narrative Review of Systems: Patient has advanced dementia Past Medical History Past Medical History NEUROLOGIC: Positive Dementia CARDIAC: Positive Hypertension; Negative Congestive Heart Failure RESPIRATORY: Negative Chronic Obstructive Pulmonary Disease (COPD) GENITOURINARY: Negative Renal Disease ENDOCRINE: Negative Diabetes Mellitus Type 1 or Diabetes Mellitus Type 2 OTHER HISTORY: Positive Blood Transfusions; Negative Cancer Surgical History SURGICAL: Positive Knee Sx and Hip Sx Social History SMOKING STATUS: Unknown if ever smoked Meds Home Medications and Allergies Home Medications ?Medication ?Instructions ?Recorded ?Confirmed ?Type simvastatin 10 mg tablet (Zocor) 10 mg PO HS #0 tabs 05/28/14 11/24/24 History metoprolol succinate 25 mg 25 mg PO BID 06/29/18 11/24/24 History tablet,extended release 24 hr nitrofurantoin macrocrystal 100 mg 100 mg PO DAILY 06/29/18 11/24/24 History capsule Allergies Allergy/AdvReac Type Severity Reaction Status Date / Time cimetidine Allergy Mild INCREASED Unverified 05/28/14 11:55 HEART RATE etodolac Allergy Mild Unverified 05/28/14 09:04 [id number] Allergy Mild Verified 05/28/14 09:04 [id number] Allergy Mild Verified 05/28/14 09:04 [id number] Allergy Mild Verified 05/28/14 09:04 [id number] Allergy Mild Verified 05/28/14 09:04 [id number] Allergy Mild Verified 05/28/14 09:04 [id number] Allergy Mild Verified 05/28/14 09:04 [id number] Allergy Mild Verified 05/28/14 09:04 [id number] Allergy Mild Verified 05/28/14 09:04 [id number] Allergy Mild Verified 05/28/14 09:04 [id number] Allergy Mild Verified 05/28/14 09:04 lanolin Allergy Mild Verified 05/28/14 09:04 nitrofurantoin Allergy Mild YEAST Unverified 05/28/14 09:04 INFECTION orphenadrine Allergy Mild Rash Verified 05/28/14 09:04 povidone Allergy Mild Verified 05/28/14 09:04 quinine Allergy Mild BLEEDING Unverified 05/28/14 09:04 Sulfa (Sulfonamide Allergy Mild Unverified 05/28/14 09:04 Antibiotics) sulfamethoxazole Allergy Mild Unverified 05/28/14 09:04 trimethoprim Allergy Mild Unverified 05/28/14 09:04 Exam Vital Signs Temp Pulse Resp BP Pulse Ox O2 Del Method O2 Flow Rate 36.8 C 106 H 24 H 107/75 96 Nasal Cannula 2 11/24/24 16:26 11/24/24 16:26 11/24/24 16:26 11/24/24 16:26 11/24/24 16:26 11/24/24 16:26 11/24/24 16:26 Narrative Exam GENERAL APPEARANCE: Patient currently seen in the emergency department. NECK: Neck supple, no JVD or bruit CARDIOVASCULAR: Heart regular, no murmurs LUNGS/CHEST: Chest clear to auscultation. No rales, rhonchi, wheezing ABDOMEN: Soft, nontender, nondistended. No masses. Normal bowel sounds. EXTREMITIES: No edema, clubbing or cyanosis. SKIN: Bruises excoriations noted in the lower extremities MUSCULOSKELETAL: Patient currently in bed NEUROLOGICAL : Seems confused from dementia Results: Labs 11/25/24 06:00 11/25/24 06:00 Labs: Short CBC 11/24/24 Range/Units 09:23 WBC 11.4 H (3.6-11.0) Thou/mm3 Hgb 15.7 (12.0-16.0) g/dL Hct 46.3 H (36.0-46.0) % Plt Count 156 (140-440) Thou/mm3 BMP 11/24/24 09:23 Sodium 143 Potassium 3.7 Chloride 109 H Carbon Dioxide 26.1 BUN 26 H Creatinine 0.8 Glucose 155 H Calcium 10.5 Cardiac Enzymes 11/24/24 Range/Units 09:23 Total Creatine Kinase 2218 H (34-171) U/L Troponin I 0.033 (0.0-0.045) ng/mL Liver Function 11/24/24 Range/Units 09:23 Total Bilirubin 2.6 H (0.3-1.2) mg/dL AST 120 H (0-34) U/L ALT 49 (10-49) U/L Alkaline Phosphatase 75 (46-116) U/L Albumin 4.6 (3.4-4.8) gm/dL Urine 11/24/24 Range/Units 10:50 Urine Color Yellow (Lt Yel-Yel) Urine Clarity Clear (Clear/Hazy) Urine pH 5.5 (5.0-7.0) Ur Specific [place] 1.021 (1.001-1.035) Urine Protein 1+ A (Neg - Trace) Urine Glucose (UA) Negative (Negative) ABG Interpretation ABG results: 11/24/24 11:19 ABG pH 7.44 ABG pCO2 35 ABG pO2 123 H ABG HCO3 24 ABG O2 Saturation 99 H ABG Base Excess 0 Assessment & Plan Additional Assessment & Plan Additional Plan: Ms. Wong is an 79-year-old female with a past medical history of advanced dementia, hypertension, and hyperlipidemia who is admitted for acute fracture of hip and rhabdomyolysis. #Acute fracture of left hip #Ground level fall - Orthopedics consulted, appreciate recommendations #Rhabdomyolysis - Continue IVF #? UTI - Continue ceftriaxone # Advanced dementia Might need to go to rehab. Will discuss with #Hypertension on metoprolol 25 mg PO BID - Will hold home antihypertensives for now as BP controlled - Consider swallow screen #Hyperlipidemia on simvastatin 10 mg -Will hold off for now Quality Measures Quality Measures none Advance care planning discussed with:: patient
[2024-11-24 20:10] VITALS: BP 118/56; PULSE 111; RESP 18; TEMP 37.8; O2SAT 95
--- NOTE | 2024-11-24 21:00 | PC.NURSE ---
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
[2024-11-24] MEDS: SODIUM CHLORIDE 0.45 % 1,000 ML 100 ML IV (21:06)
[2024-11-24] MEDS: HEPARIN SOD INJ 5000 UNIT/ML VIAL SC (21:12)
--- NOTE | 2024-11-24 21:15 | PC.NURSE ---
Pt came in from ER, lethargic but able to response on painful stimuli. Pt has a aguillon draining well with veronica color. Pt has a multiple skin tear on her bilateral arm and abrasions on her right and left 2nd toe. Wound care done and will consult wound nurse in AM.
[2024-11-24 23:00] VITALS: BP 127/64; PULSE 97; RESP 19; TEMP 37.2; O2SAT 94; BMI 23.6
[2024-11-25] VITALS: BP 126/70; PULSE 92; RESP 17; TEMP 36.8; O2SAT 99
[2024-11-25 04:00] VITALS: BP 128/67; PULSE 76; RESP 17; TEMP 36.1; O2SAT 100
[2024-11-25 06:39] LABS: Basophils % (Auto) 0 % (0-2.5); Eosinophils % (Auto) 0 % (0-10); Hemoglobin 11.4 g/dL (12.0-16.0); Immature Granulocytes % (Auto) 0 % (0-0); Immature Granulocytes Auto 0.02 Thou/mm3 (0.00-0.00); Lymphocytes # (Auto) 0.8 Thou/mm3 (1.0-4.8); Lymphocytes % (Auto) 14 % (10-50); Mean Corpuscular HGB Conc 33.5 g/dl (31.0-37.0); Mean Corpuscular Hemoglobin 30.4 pg (25.0-35.0); Mean Corpuscular Volume 91 fL (80-100); Monocytes # (Auto) 0.6 Thou/mm3 (0.0-0.8); Monocytes % (Auto) 10 % (0-12); Neutrophils # (Auto) 4.3 Thou/mm3 (1.8-7.7); Neutrophils % (Auto) 75 % (37-80); Nucleated Red Blood Cell % 0 /100 WBC (0); Platelet Count 110 Thou/mm3 (140-440); RDW Standard Deviation 46.4 fL (36.4-46.3); Red Blood Count 3.75 Miln/mm3 (4.00-5.20); White Blood Count 5.8 Thou/mm3 (3.6-11.0)
[2024-11-25 07:18] LABS: Alanine Aminotransferase 41 U/L (10-49); Albumin, Serum 3.1 gm/dL (3.4-4.8); Albumin/Globulin Ratio 1.8 (1.2-2.2); Alkaline Phosphatase 55 U/L (46-116); Anion Gap 8 (7-16); Aspartate Amino Transferase 86 U/L (0-34); BUN/Creatinine Ratio 44 Ratio (12-20); Bilirubin,Total 1.3 mg/dL (0.3-1.2); Blood Urea Nitrogen 22 mg/dL (9-23); Calcium 9.2 mg/dL (8.3-10.6); Calcium (Corrected) 9.9 mg/dL (8.5-10.1); Carbon Dioxide 25.1 mMol/L (20.0-31.0); Chloride 114 mMol/L (98-107); Creatinine (Component) 0.5 mg/dL (0.6-1.3); Estimated Creatinine Clearance 76.2 mL/min (>60); Globulin 1.7 gm/dL (2.3-3.5); Glucose 99 mg/dL (74-106); Osmolality,Calculated 295 (275-295); Potassium 3.6 mMol/L (3.4-5.1); Sodium 147 mMol/L (136-145); Total Protein 4.8 gm/dL (5.7-8.2); eGFR > 60 See Note
[2024-11-25 08:00] VITALS: BP 121/80; PULSE 92; RESP 17; TEMP 36.5; O2SAT 99
--- NOTE | 2024-11-25 08:33 | PD.RESPRO ---
Documentation for date of: 11/25/24 Subjective Subjective Interval history: Marquita Blancas is an 79-year-old female with a past medical history of advanced dementia, hypertension, and hyperlipidemia who was brought to the ED after being found on the ground by her for unknown duration of time. Patient is unable to provide history, thus history was obtained via chart review. found patient at home on floor, unconscious, and covered in feces in morning of 11/24. She does have a history of multiple ground-level falls, but has never lost consciusness or had bowel/bladder incontinence. In the ED, vitals significant for O2 90% on 2 L NC, otherwise stable. Labs significant for WBC 11.4, hgb 15.7, and plt wnl. BUN 26, Cr 0.8, lactate 2.3, t bili 2.6, AST 120, and CK 2200. CT C/A/P showed fracture of 6h right rib, left inferior pubic ramus, left superior pubic ramus, and left iliac bone. CT spine negative, CT head negative, XR of femur, ankle, forearm, and tibia/fibula negative. Given ceftriaxone, 1 L NS, and 1 L LR in ED. 11/25: Seen and examined at bedside on medical floor. No acute overnight events reported. Patient alert but unable to answer questions, likely due to dementia. Labs and orders reviewed. WBC 5.8, hgb 11.4, plt 110. Na 147, BUN 22, Cr 0.5, t bili 1.3, AST 86. Orthopedics consulted, pending recommendations. Exam Vital Signs Temp Pulse Resp BP Pulse Ox O2 Del Method O2 Flow Rate 97.7 F 92 17 121/80 99 Nasal Cannula 2 11/25/24 08:00 11/25/24 08:00 11/25/24 08:00 11/25/24 08:00 11/25/24 08:00 11/25/24 08:00 11/25/24 08:00 Narrative Exam General: alert, no acute distress HEENT: NC/AT, mucous membranes moist, bilateral sclera anicteric Cardiovascular: regular rate and rhythm, S1/S2 present, no murmurs appreciated Pulmonary: clear to auscultation bilaterally, no rales/rhonchi/wheezes Abdominal: soft, non-tender, non-distended, no rebound/guarding, normal bowel sounds present Musculoskeletal: no peripheral edema Objective Labs 11/27/24 04:59 11/26/24 05:30 Labs: Laboratory Results - last 24 hr 11/24/24 11/24/24 11/24/24 09:23 10:50 11:19 WBC 11.4 H RBC 5.22 H Hgb 15.7 Hct 46.3 H MCV 89 MCH 30.1 MCHC 33.9 RDW Std Deviation 44.5 Plt Count 156 Neut % (Auto) 84 H Lymph % (Auto) 7 L [place] % (Auto) 9 Eos % (Auto) 0 Baso % (Auto) 0 Neut # (Auto) 9.6 H Lymph # (Auto) 0.8 L [place] # (Auto) 1.0 H Eos # (Auto) 0.0 Baso # (Auto) 0.0 Immature Gran # (Auto) 0.03 H Absolute Nucleated RBC 0.00 Immature Gran % 0 Nucleated RBC % 0 PT 12.1 INR 1.1 APTT 27.7 Puncture Site Right Radial ABG pH 7.44 ABG pCO2 35 ABG pO2 123 H ABG HCO3 24 ABG O2 Saturation 99 H ABG Base Excess 0 FiO2 95 Sodium 143 Potassium 3.7 Chloride 109 H Carbon Dioxide 26.1 Anion Gap 8 BUN 26 H Creatinine 0.8 Estim Creat Clear Calc 52.3 L eGFR > 60 BUN/Creatinine Ratio 33 H Glucose 155 H Calculated Osmolality 292 Lactic Acid 2.3 H Calcium 10.5 Corrected Calcium 10.5 H Phosphorus 2.4 Magnesium 2.4 Total Bilirubin 2.6 H AST 120 H ALT 49 Alkaline Phosphatase 75 Ammonia < 10 L Lactate Dehydrogenase 367 H Total Creatine Kinase 2218 H Troponin I 0.033 B-Natriuretic Peptide 74 Total Protein 7.0 Albumin 4.6 Globulin 2.4 Albumin/Globulin Ratio 1.9 Lipase 25 Procalcitonin 0.57 H Ur Collection Type Catheter Urine Color Yellow Urine Clarity Clear Urine pH 5.5 Ur Specific [place] 1.021 Urine Protein 1+ A Urine Glucose (UA) Negative Urine Ketones 1+ A Urine Blood Negative Urine Nitrite Positive Urine Bilirubin Negative Urine Urobilinogen (Auto) Negative Ur Leukocyte Esterase Positive Urine RBC 7 H Urine WBC 60 H Ur Squamous Epith Cells 0 Urine Bacteria None 11/24/24 11/25/24 13:08 06:00 WBC 5.8 D RBC 3.75 L Hgb 11.4 L D Hct 34.0 L D MCV 91 MCH 30.4 MCHC 33.5 RDW Std Deviation 46.4 H Plt Count 110 L D Neut % (Auto) 75 Lymph % (Auto) 14 [place] % (Auto) 10 Eos % (Auto) 0 Baso % (Auto) 0 Neut # (Auto) 4.3 Lymph # (Auto) 0.8 L [place] # (Auto) 0.6 Eos # (Auto) 0.0 Baso # (Auto) 0.0 Immature Gran # (Auto) 0.02 H Absolute Nucleated RBC 0.00 Immature Gran % 0 Nucleated RBC % 0 PT INR APTT Puncture Site ABG pH ABG pCO2 ABG pO2 ABG HCO3 ABG O2 Saturation ABG Base Excess FiO2 Sodium 147 H Potassium 3.6 Chloride 114 H Carbon Dioxide 25.1 Anion Gap 8 BUN 22 Creatinine 0.5 L Estim Creat Clear Calc 76.2 eGFR > 60 BUN/Creatinine Ratio 44 H Glucose 99 D Calculated Osmolality 295 Lactic Acid 1.9 Calcium 9.2 Corrected Calcium 9.9 Phosphorus Magnesium Total Bilirubin 1.3 H D AST 86 H ALT 41 Alkaline Phosphatase 55 D Ammonia Lactate Dehydrogenase Total Creatine Kinase Troponin I B-Natriuretic Peptide Total Protein 4.8 L Albumin 3.1 L D Globulin 1.7 L Albumin/Globulin Ratio 1.8 Lipase Procalcitonin Ur Collection Type Urine Color Urine Clarity Urine pH Ur Specific [place] Urine Protein Urine Glucose (UA) Urine Ketones Urine Blood Urine Nitrite Urine Bilirubin Urine Urobilinogen (Auto) Ur Leukocyte Esterase Urine RBC Urine WBC Ur Squamous Epith Cells Urine Bacteria ABG Interpretation ABG results: 11/24/24 11:19 ABG pH 7.44 ABG pCO2 35 ABG pO2 123 H ABG HCO3 24 ABG O2 Saturation 99 H ABG Base Excess 0 Quality Measures Quality Measures none Advance care planning discussed with:: patient Assessment & Plan Assessment Current Active Medications: Generic Name Dose Route Start Last Admin Trade Name Freq PRN Reason Stop Dose Admin Heparin Sodium (Porcine) 5,000 unit 11/24/24 21:00 11/24/24 21:12 Heparin Sod Inj 5000 Unit/Ml Vial SC 12/08/24 20:59 5,000 unit BID [place] Administration Ceftriaxone Sodium/Dextrose 50 mls @ 100 mls/hr 11/25/24 09:00 Rocephin/D5w 1gm Iv Premix IV 12/02/24 08:59 QDAY [place] Plan Marquita Blancas is an 79-year-old female with a past medical history of advanced dementia, hypertension, and hyperlipidemia who is admitted for acute fracture of hip and rhabdomyolysis. #Acute fracture of left hip #Ground level fall - Orthopedics consulted, appreciate recommendations #Rhabdomyolysis - Continue IVF #? UTI - Continue ceftriaxone #Hypertension Home metoprolol 25 mg PO BID - Will hold home antihypertensives for now as BP controlled - Consider swallow screen #Hyperlipidemia Home simvastatin 10 mg - Consider swallow screen #Dementia - Monitor Hospital management: Disposition: pending ortho recs Diet: regular Lines: peripheral DVT prophylaxis: heparin SC BID Ortega: placed CODE STATUS: DNR ----- Plan discussed with attending physician Dr. Philippe Bae MD PGY-1 Internal Medicine Attending Provider Attestation/Addendum Patient seen with resident physician Dr. Hanna. Note reviewed, agree with findings and recommendations. Status post fall advanced dementia patient. Noted pelvic fracture. Did not complain of any pain. She also has mild UTI. On IV fluids, antibiotics. Will be discharged to rehab once stable.
[2024-11-25] MEDS: cefTRIAXone/D5w 1gm IV premix 50 ML IV (09:05)
[2024-11-25] MEDS: HEPARIN SOD INJ 5000 UNIT/ML VIAL SC ×2 (09:06→20:28)
[2024-11-25 12:00] VITALS: BP 120/78; PULSE 84; RESP 16; TEMP 36.6; O2SAT 98
[2024-11-25 16:00] VITALS: BP 136/80; PULSE 107; RESP 18; TEMP 36.7; O2SAT 97
--- NOTE | 2024-11-25 19:05 | ESCONSULT_ITS ---
RE: AB[place]A [place] : 1945 DATE OF CONSULTATION: 11/25/[address] Paez for asking me to see the patient whom I saw on 11/25/2024 in the morning. HISTORY OF PRESENT ILLNESS: As per history available, the patient fell down at home. The patient has significant senile dementia. Subsequent to the fall, the patient was unable to walk properly and was brought to the emergency room. X-ray of the tibia, fibula, femur, and forearm was obtained. CT scan of the abdomen and pelvis was obtained. It revealed inferior pubic rami fracture on the left side. The patient was admitted for further management. PAST MEDICAL HISTORY: Denies any history of diabetes mellitus. The patient has a history of high blood pressure. Lab work was done. Clinical diagnosis of possible septicemia was also entertained. Repeat CT scan of the pelvis revealed inferior pubic rami fracture. Once the patient is stabilized, the patient may be mobilized with the help of physical therapists. Both lower limbs are full weight bear. No surgical intervention is indicated. DT: 16:49:51 TT: 17:02:00 Ref: [id number] - TID: [id number]
[2024-11-25 20:00] VITALS: BP 150/84; PULSE 97; RESP 17; TEMP 36.6; O2SAT 98
[2024-11-25] MEDS: SODIUM CHLORIDE 0.45 % 1,000 ML 100 ML IV (21:09)
[2024-11-26] VITALS: BP 143/73; PULSE 83; RESP 16; TEMP 36.8; O2SAT 99
[2024-11-26 04:00] VITALS: BP 153/80; PULSE 83; RESP 16; TEMP 36.6; O2SAT 99
[2024-11-26 06:21] LABS: Basophils % (Auto) 0 % (0-2.5); Eosinophils % (Auto) 1 % (0-10); Hematocrit 32.9 % (36.0-46.0); Hemoglobin 10.7 g/dL (12.0-16.0); Immature Granulocytes % (Auto) 0 % (0-0); Lymphocytes # (Auto) 0.8 Thou/mm3 (1.0-4.8); Lymphocytes % (Auto) 17 % (10-50); Mean Corpuscular HGB Conc 32.5 g/dl (31.0-37.0); Mean Corpuscular Hemoglobin 29.7 pg (25.0-35.0); Mean Corpuscular Volume 91 fL (80-100); Monocytes # (Auto) 0.4 Thou/mm3 (0.0-0.8); Monocytes % (Auto) 9 % (0-12); Neutrophils # (Auto) 3.3 Thou/mm3 (1.8-7.7); Neutrophils % (Auto) 73 % (37-80); Nucleated Red Blood Cell % 0 /100 WBC (0); Platelet Count 109 Thou/mm3 (140-440); White Blood Count 4.5 Thou/mm3 (3.6-11.0)
[2024-11-26 06:43] LABS: Alanine Aminotransferase 37 U/L (10-49); Albumin/Globulin Ratio 1.6 (1.2-2.2); Alkaline Phosphatase 51 U/L (46-116); Anion Gap 7 (7-16); Aspartate Amino Transferase 56 U/L (0-34); BUN/Creatinine Ratio 30 Ratio (12-20); Blood Urea Nitrogen 15 mg/dL (9-23); Calcium 8.9 mg/dL (8.3-10.6); Calcium (Corrected) 9.7 mg/dL (8.5-10.1); Chloride 112 mMol/L (98-107); Creatine Kinase 290 U/L (34-171); Creatinine (Component) 0.5 mg/dL (0.6-1.3); Estimated Creatinine Clearance 76.2 mL/min (>60); Globulin 1.9 gm/dL (2.3-3.5); Glucose 93 mg/dL (74-106); Osmolality,Calculated 285 (275-295); Potassium 3.2 mMol/L (3.4-5.1); Sodium 143 mMol/L (136-145); Total Protein 4.9 gm/dL (5.7-8.2); eGFR > 60 See Note
[2024-11-26] MEDS: SODIUM CHLORIDE 0.45 % 1,000 ML 100 ML IV ×2 (07:38→18:30)
[2024-11-26 08:00] VITALS: BP 136/69; PULSE 82; RESP 15; TEMP 36.8; O2SAT 100
--- NOTE | 2024-11-26 08:42 | PD.RESPRO ---
Documentation for date of: 11/26/24 Subjective Subjective Interval history: Marquita Blancas is an 79-year-old female with a past medical history of advanced dementia, hypertension, and hyperlipidemia who was brought to the ED after being found on the ground by her for unknown duration of time. Patient is unable to provide history, thus history was obtained via chart review. found patient at home on floor, unconscious, and covered in feces in morning of 11/24. She does have a history of multiple ground-level falls, but has never lost consciusness or had bowel/bladder incontinence. In the ED, vitals significant for O2 90% on 2 L NC, otherwise stable. Labs significant for WBC 11.4, hgb 15.7, and plt wnl. BUN 26, Cr 0.8, lactate 2.3, t bili 2.6, AST 120, and CK 2200. CT C/A/P showed fracture of 6h right rib, left inferior pubic ramus, left superior pubic ramus, and left iliac bone. CT spine negative, CT head negative, XR of femur, ankle, forearm, and tibia/fibula negative. Given ceftriaxone, 1 L NS, and 1 L LR in ED. 11/25: Seen and examined at bedside on medical floor. No acute overnight events reported. Patient alert but unable to answer questions, likely due to dementia. Labs and orders reviewed. WBC 5.8, hgb 11.4, plt 110. Na 147, BUN 22, Cr 0.5, t bili 1.3, AST 86. Orthopedics consulted, pending recommendations. 11/26: Seen and examined at bedside on medical floor. No acute overnight events reported. Dr. Lennon evaluated patient and no surgical intervention indicated. Recommended that once stabilized, may be mobilized with help of physical therapists with both lower extremities full weight-bearing. PT referral in place and patient to be discharged to SNF. architectural practice manager made aware. K noted to be 3.2 and repleted, total CK downtrended while on IVF. Exam Vital Signs Temp Pulse Resp BP Pulse Ox O2 Del Method O2 Flow Rate 98.3 F 82 15 136/69 H 100 Nasal Cannula 2 11/26/24 08:00 11/26/24 08:00 11/26/24 08:00 11/26/24 08:00 11/26/24 08:00 11/26/24 08:00 11/26/24 08:00 Narrative Exam General: alert, no acute distress HEENT: NC/AT, mucous membranes moist, bilateral sclera anicteric Cardiovascular: regular rate and rhythm, S1/S2 present, no murmurs appreciated Pulmonary: clear to auscultation bilaterally, no rales/rhonchi/wheezes Abdominal: soft, non-tender, non-distended, no rebound/guarding, normal bowel sounds present Musculoskeletal: no peripheral edema Objective Labs 11/27/24 04:59 11/26/24 05:30 Labs: Laboratory Results - last 24 hr 11/26/24 05:30 WBC 4.5 RBC 3.60 L Hgb 10.7 L Hct 32.9 L MCV 91 MCH 29.7 MCHC 32.5 RDW Std Deviation 45.0 Plt Count 109 L Neut % (Auto) 73 Lymph % (Auto) 17 [place] % (Auto) 9 Eos % (Auto) 1 Baso % (Auto) 0 Neut # (Auto) 3.3 Lymph # (Auto) 0.8 L [place] # (Auto) 0.4 Eos # (Auto) 0.0 Baso # (Auto) 0.0 Immature Gran # (Auto) 0.00 Absolute Nucleated RBC 0.00 Immature Gran % 0 Nucleated RBC % 0 Sodium 143 Potassium 3.2 L Chloride 112 H Carbon Dioxide 24.0 Anion Gap 7 BUN 15 Creatinine 0.5 L Estim Creat Clear Calc 76.2 eGFR > 60 BUN/Creatinine Ratio 30 H Glucose 93 Calculated Osmolality 285 Calcium 8.9 Corrected Calcium 9.7 Total Bilirubin 1.0 AST 56 H ALT 37 Alkaline Phosphatase 51 Total Creatine Kinase 290 H D Total Protein 4.9 L Albumin 3.0 L Globulin 1.9 L Albumin/Globulin Ratio 1.6 ABG Interpretation ABG results: 11/24/24 11:19 ABG pH 7.44 ABG pCO2 35 ABG pO2 123 H ABG HCO3 24 ABG O2 Saturation 99 H ABG Base Excess 0 Quality Measures Quality Measures none Advance care planning discussed with:: patient Assessment & Plan Assessment Current Active Medications: Generic Name Dose Route Start Last Admin Trade Name Freq PRN Reason Stop Dose Admin Heparin Sodium (Porcine) 5,000 unit 11/24/24 21:00 11/25/24 20:28 Heparin Sod Inj 5000 Unit/Ml Vial SC 12/08/24 20:59 5,000 unit BID CARRINGTON Administration Ceftriaxone Sodium/Dextrose 50 mls @ 100 mls/hr 11/25/24 09:00 11/25/24 09:05 Rocephin/D5w 1gm Iv Premix IV 12/02/24 08:59 100 mls/hr QDAY CARRINGTON Administration Sodium Chloride 1,000 mls @ 100 mls/hr 11/25/24 20:45 11/26/24 07:38 Ns 0.45% IV 12/25/24 20:37 100 mls/hr .Q10H CARRINGTON Administration Plan Marquita Blancas is an 79-year-old female with a past medical history of advanced dementia, hypertension, and hyperlipidemia who is admitted for acute fracture of hip and rhabdomyolysis. #Acute fracture of left hip #Ground level fall - Orthopedics consulted, appreciate recommendations - No surgical intervention indicated - Recommended that once stabilized, may be mobilized with help of physical therapists with both lower extremities full weight-bearing - Pending SNF placement #Rhabdomyolysis, resolved - Continue IVF #? UTI Urine cx positive for pansensitive E. coli - Continue ceftriaxone #Hypertension Home metoprolol 25 mg PO BID - Will hold home antihypertensives for now as BP controlled #Hyperlipidemia Home simvastatin 10 mg #Dementia - Monitor Hospital management: Disposition: pending SNF placement Diet: regular Lines: peripheral DVT prophylaxis: heparin SC BID Ortega: placed CODE STATUS: DNR ----- Plan discussed with attending physician Dr. Philippe Bae MD PGY-1 Internal Medicine Attending Provider Attestation/Addendum Patient seen with resident physician Dr. Hanna. Note reviewed, agree with findings and recommendations. Status post fall advanced dementia patient. Noted pelvic fracture. Did not complain of any pain. She also has mild UTI. On IV fluids, antibiotics. Will be discharged to rehab possibly in a.m. Spoke to health and social care teacher. Physical therapy ordered. Will plan for discharge tomorrow once final cultures are available. Noted Ortho recommendations-no surgery, physical therapy.
[2024-11-26] MEDS: cefTRIAXone/D5w 1gm IV premix 50 ML IV (09:06)
[2024-11-26] MEDS: HEPARIN SOD INJ 5000 UNIT/ML VIAL SC ×2 (09:06→20:47)
--- NOTE | 2024-11-26 09:50 | PC.SS ---
SS was informed by Dr. Watkins that patient will need SNF. SS submitted SNF inquiry through [employer]. SS submitted PASSR LVL1 cleared. SS attempted to meet with patient, however patient is confused. SS attempted to contact patient's , Tyrese to complete initial assessment, however did not answer. SS will attempt to contact to to present SNF that accepted patient, patient will complete 3 midnights tomorrow.
[2024-11-26] MEDS: ACETAMINOPHEN 500 MG TABLET PO (10:22)
[2024-11-26] MEDS: POTASSIUM CHLORIDE 20 mEq TABCR 40 MEQ PO (10:23)
--- NOTE | 2024-11-26 11:24 | PC.SS ---
Patient Marquita Blancas is a 79 Year old female admitted for S/P Fall. Pelvic Fracture. SS was contacted by Patient's , Tyrese. He reports patient lives at home with him. Prior to admission patient was able to ambulate and able to complete all ADL's. Patient has a HX of Dementia. Patient's reports he is surrogate decision maker [phone]. PCP is Roland. SS informed him that Dr. Watkins informed SS that patient will need SNF. Patient's reported he would like the Facility closer the the hospital. SS informed him that the SNF closest the the hospital is [facility]. Patient's agreeable to have patient discharge to [facility]. At time of discharge SS will need to assist with transportation. Discharge plan: [facility] Next of Kin, , Tyrese Blancas
[2024-11-26 12:00] VITALS: BP 108/69; PULSE 77; RESP 15; TEMP 36.8; O2SAT 98
[2024-11-26 14:41] VITALS: BMI 12.0
[2024-11-26 16:00] VITALS: BP 129/78; PULSE 96; RESP 17; TEMP 37.2; O2SAT 96
[2024-11-26 20:00] VITALS: BP 136/77; PULSE 107; RESP 17; TEMP 36.5; O2SAT 96
--- NOTE | 2024-11-26 20:45 | PC.NURSE ---
okayed to administer 2100H dose of Heparin.
[2024-11-27] VITALS: BP 128/69; PULSE 88; RESP 17; TEMP 36.2; O2SAT 94
[2024-11-27 04:00] VITALS: BP 138/85; PULSE 88; RESP 15; TEMP 36.7; O2SAT 97
[2024-11-27] MEDS: SODIUM CHLORIDE 0.45 % 1,000 ML 100 ML IV (04:51)
[2024-11-27 05:35] LABS: Basophils % (Auto) 0 % (0-2.5); Eosinophils # (Auto) 0.1 Thou/mm3 (0.0-0.5); Eosinophils % (Auto) 2 % (0-10); Hematocrit 33.3 % (36.0-46.0); Hemoglobin 11.2 g/dL (12.0-16.0); Immature Granulocytes % (Auto) 0 % (0-0); Immature Granulocytes Auto 0.01 Thou/mm3 (0.00-0.00); Lymphocytes # (Auto) 0.8 Thou/mm3 (1.0-4.8); Lymphocytes % (Auto) 20 % (10-50); Mean Corpuscular HGB Conc 33.6 g/dl (31.0-37.0); Mean Corpuscular Hemoglobin 30.7 pg (25.0-35.0); Mean Corpuscular Volume 91 fL (80-100); Monocytes # (Auto) 0.4 Thou/mm3 (0.0-0.8); Monocytes % (Auto) 10 % (0-12); Neutrophils # (Auto) 2.7 Thou/mm3 (1.8-7.7); Neutrophils % (Auto) 68 % (37-80); Nucleated Red Blood Cell % 0 /100 WBC (0); Platelet Count 124 Thou/mm3 (140-440); RDW Standard Deviation 44.1 fL (36.4-46.3); Red Blood Count 3.65 Miln/mm3 (4.00-5.20)
[2024-11-27 06:15] LABS: Alanine Aminotransferase 38 U/L (10-49); Albumin, Serum 2.9 gm/dL (3.4-4.8); Albumin/Globulin Ratio 1.5 (1.2-2.2); Alkaline Phosphatase 50 U/L (46-116); Anion Gap 7 (7-16); Aspartate Amino Transferase 37 U/L (0-34); BUN/Creatinine Ratio 22 Ratio (12-20); Bilirubin,Total 0.9 mg/dL (0.3-1.2); Blood Urea Nitrogen 11 mg/dL (9-23); Calcium (Corrected) 9.9 mg/dL (8.5-10.1); Carbon Dioxide 23.9 mMol/L (20.0-31.0); Chloride 113 mMol/L (98-107); Creatine Kinase 109 U/L (34-171); Creatinine (Component) 0.5 mg/dL (0.6-1.3); Estimated Creatinine Clearance 76.2 mL/min (>60); Glucose 105 mg/dL (74-106); Osmolality,Calculated 286 (275-295); Potassium 3.7 mMol/L (3.4-5.1); Sodium 144 mMol/L (136-145); Total Protein 4.9 gm/dL (5.7-8.2); eGFR > 60 See Note
[2024-11-27 08:00] VITALS: BP 132/77; PULSE 78; RESP 18; TEMP 36.7; O2SAT 92
--- NOTE | 2024-11-27 08:27 | PD.RESDS ---
Planned Discharge Date 11/27/24 DS: Providers Provider Date of admission: 11/24/24 17:23 Primary care physician: Physician No Primary/Family Admitting Provider: Raisa Paez MD Attending Provider on Admission: Raisa Paez MD Consults: 11/24/24 12:55 Consult to Orthopedic Stat Comment: Pelvic fracture Consulting Provider: Moses Lennon 11/24/24 17:26 PT [Referral Physical Therapy] Routine Comment: Physician Instructions: Referral Discharge Planning Routine Comment: rehab 11/25/24 08:00 Referral Wound Care Routine Comment: Attending Provider on DC: Philip Bae MD Discharging Provider: Philip Bae MD DS: Diagnosis Problem List Completed Was Problem List Reviewed/Reconciled?: Yes Hospital Course Hospital Course Hospital course: Marquita Blancas is an 79-year-old female with a past medical history of advanced dementia, hypertension, and hyperlipidemia who was brought to the ED after being found on the ground by her for unknown duration of time. Patient is unable to provide history, thus history was obtained via chart review. found patient at home on floor, unconscious, and covered in feces in morning of 11/24. She does have a history of multiple ground-level falls, but has never lost consciusness or had bowel/bladder incontinence. In the ED, vitals significant for O2 90% on 2 L NC, otherwise stable. Labs significant for WBC 11.4, hgb 15.7, and plt wnl. BUN 26, Cr 0.8, lactate 2.3, t bili 2.6, AST 120, and CK 2200. CT C/A/P showed fracture of 6h right rib, left inferior pubic ramus, left superior pubic ramus, and left iliac bone. CT spine negative, CT head negative, XR of femur, ankle, forearm, and tibia/fibula negative. Given ceftriaxone, 1 L NS, and 1 L LR in ED. 11/25: Seen and examined at bedside on medical floor. No acute overnight events reported. Patient alert but unable to answer questions, likely due to dementia. Labs and orders reviewed. WBC 5.8, hgb 11.4, plt 110. Na 147, BUN 22, Cr 0.5, t bili 1.3, AST 86. Orthopedics consulted, pending recommendations. 11/26: Seen and examined at bedside on medical floor. No acute overnight events reported. Dr. Lennon evaluated patient and no surgical intervention indicated. Recommended that once stabilized, may be mobilized with help of physical therapists with both lower extremities full weight-bearing. PT referral in place and patient to be discharged to SNF. mobile product manager made aware. K noted to be 3.2 and repleted, total CK downtrended while on IVF. 11/27: Seen and examined at bedside on medical floor. No acute overnight events reported. She was evaluated by physical therapy yesterday, and recommends rehabilitation placement for skilled therapy services for maximization of rehab potential. mobile product manager spoke to patient's , decision-maker, and updated him on current plans and is agreeable to have patient discharged to [facility]. Otherwise, patient deemed stable for discharge. Orthopedics recommend once stabilized, patient can be mobilized with help of physical therapists with both lower extremities able to bear full weight. Discharge diagnosis-status post fall with pelvic fracture, rhabdomyolysis, dehydration, UTI, hypertension, dementia Status at Discharge Cognitive/behavioral status at discharge: Dementia Functional status at discharge: wheelchair bound Overall status at discharge: patient is not back to baseline Time Spent with Patient Time attestation: Total time spent providing and/or coordinating discharge services: 35 minutes Exam Vital Signs Temp Pulse Resp BP Pulse Ox O2 Del Method O2 Flow Rate 98.1 F 88 15 138/85 H 97 Room Air 2 11/27/24 04:00 11/27/24 04:00 11/27/24 04:00 11/27/24 04:00 11/27/24 04:00 11/27/24 04:00 11/26/24 08:00 Narrative Exam General: alert, no acute distress HEENT: NC/AT, mucous membranes moist, bilateral sclera anicteric Cardiovascular: regular rate and rhythm, S1/S2 present, no murmurs appreciated Pulmonary: clear to auscultation bilaterally, no rales/rhonchi/wheezes Abdominal: soft, non-tender, non-distended, no rebound/guarding, normal bowel sounds present Musculoskeletal: no peripheral edema, limited movement of LLE due to pain Discharge Plan Plan Patient Disposition: Xfer Skilled Nsg Fac (SNF) Patient condition on transfer: Stable Care Plan Goals: - Take Augmentin 500-125 mg orally twice per day - Continue taking metoprolol and simvastatin as prescribed - If still taking nitrofurantoin, discontinue - Follow-up with PCP within 1 week of discharge - Continue physical therapy regimen as recommended - Return to the ED if symptoms worsen or recur Prescriptions/Referrals Prescriptions/Med Rec: New amoxicillin-pot clavulanate [Augmentin] 500-125 mg tablet 1 tab PO BID Qty: 1 0RF Continued simvastatin [Zocor] 10 MG tablet 10 mg PO HS Qty: 0 metoprolol succinate 25 mg Tablet Extended Release 24 Hr 25 mg PO BID Discontinued nitrofurantoin macrocrystal 100 mg Capsule 100 mg PO DAILY Referrals: No Primary/Family,Physician [Primary Care Provider] - Patient/Caregiver Discharge Instructions Meds to Beds: No Discharge Activity: as per physical therapy and activity as tolerated Education Materials: Caring for End-Stage Dementia Print Language: Austrian Stand Alone Forms: [facility] Award Info., Patient Portal Info Letter Discharge Order Discharge Orders: Discharge (Routine); Ordered 11/27/24 Ordered By: Philip Bae Quality Discharge Quality Measures VTE prophylaxis
[2024-11-27] MEDS: HEPARIN SOD INJ 5000 UNIT/ML VIAL SC (09:51)
[2024-11-27] MEDS: cefTRIAXone/D5w 1gm IV premix 50 ML IV (09:51)
[2024-11-27 11:36] VITALS: BMI 12.0
--- NOTE | 2024-11-27 11:39 | PC.SS ---
Addendum entered by TEVIN Schroeder 11/27/24 12:12: ETA 12:45pm with Miguelangel. Bed side nurse and [facility] Lexis informed. Original Note: SS update: patient has DC orders. Patient going to [facility]. Lexis at [facility] is ready to accept the patient today. Spoke with patient's spouse to confirm the d/c plan. He is agreeable. Requesting transportation to be arranged as patient does not possess transport coverage. [facility] Transport services contacted requesting anisha as PT notes states patient is a maximum assist. Pending ETA with Miguelangel.
[2024-11-27 12:00] VITALS: BP 124/65; PULSE 84; RESP 17; TEMP 36.4; O2SAT 97
== END 2024-11-27 13:23 | disposition skilled nursing facility (03) | DRG 964 ==
LOC: SERX 12:46 → SERHOLD 17:56 → S3SX 21:05
PROVIDERS: Student in an Organized Health Care Education/Training Program; Admitting Provider Internal Medicine; Emergency Provider Emergency Medicine; Visit Provider Internal Medicine
DX: S72.002A Fracture of unspecified part of neck of left femur, initial encounter for closed fracture (principal); M62.82 Rhabdomyolysis; S32.9XXA Fracture of unspecified parts of lumbosacral spine and pelvis, initial encounter for closed fracture; N39.0 Urinary tract infection, site not specified; S22.31XA Fracture of one rib, right side, initial encounter for closed fracture; W18.30XA Fall on same level, unspecified, initial encounter; F03.90 Unspecified dementia, unspecified severity, without behavioral disturbance, psychotic disturbance, mood disturbance, and anxiety; I10 Essential (primary) hypertension; E78.5 Hyperlipidemia, unspecified; Z66 Do not resuscitate; B96.20 Unspecified Escherichia coli [E. coli] as the cause of diseases classified elsewhere
CPT/HCPCS: 36415; 36600; 70450; 71250; 72125; 72128; 72131; 73090; 73552; 73590; 73600; 74176; 80053; 81001; 82140; 82550; 82803; 83605; 83615; 83690; 83735; 83880; 84100; 84145; 84484; 85025; 85610; 85730; 87040; 87077; 87086; 87186; 87400; 87811; 97162; J0696; J1643; J7030; J7120; A9270